=== PATIENT | male | born 1985 | race Caucasian/White ===

== ENCOUNTER 2018-08-25 20:55 | Inpatient (IN) | payer MEDICAID ==
[~2018-08-25] VITALS: Ht 180.3 cm; Wt 104.3 kg
--- NOTE | 2018-08-25 20:55 | NUR ---
2054 - Patient to ER bed 4 to gown for evaluation. Side rails up. Report given to KOMAL Garcia.
[2018-08-25 21:00] VITALS: BP_SYST 112
--- NOTE | 2018-08-25 21:00 | NUR ---
2100 - ER at bedside examining patient.
[2018-08-25 21:22] LABS: BASOPHILS % (AUTO) 0.6 % (0.0-2.0); EOSINOPHILS % (AUTO) 0.6 % (0.0-4.0); HEMATOCRIT 37.7 % (36-54); HEMOGLOBIN 12.6 g/dL (14.0-18.0); LYMPHOCYTES # (AUTO) 0.4 K/uL (1.0-5.5); LYMPHOCYTES % (AUTO) 7.4 % (20.5-51.5); MEAN CORPUSCULAR HEMOGLOBIN 26 pg (27-31); MEAN CORPUSCULAR HGB CONC 33 % (32-36); MEAN CORPUSCULAR VOLUME 78 fL (79.0-98.0); MONOCYTES # (AUTO) 0.1 K/uL (0.0-1.0); MONOCYTES % (AUTO) 2.3 % (1.7-9.3); NEUTROPHILS # (AUTO) 5.1 K/uL (1.8-7.7); NEUTROPHILS % (AUTO) 89.1 % (40.0-70.0); PLATELET COUNT (AUTO) 283 K/uL (130-430); RED BLOOD CELL COUNT(AUTO) 4.83 MIL/uL (4.2-6.2); RED CELL DISTRIBUTION WIDTH 15.4 % (9.0-15.0); WHITE BLOOD COUNT (AUTO) 5.7 K/uL (4.8-10.8)
--- NOTE | 2018-08-25 21:33 | NUR ---
Patient BIB EMS from [place]. Patient had first gone to [place] due to SOB and tachycardia. CT was down, so he was then transferred to [facility]. [facility]'s CT was also down, patient was then brought to [facility]. Patient has a hx of DVT from 6 months ago and is currently taking blood thinners. Patient denies CP, n/v.
[2018-08-25 21:40] LABS: ANION GAP 8 (5-15); CALCIUM 7.8 mg/dL (8.4-11.0); CHLORIDE 102 mmol/L (98-107); CREATININE 0.95 mg/dL (0.55-1.30); GLUCOSE 180 mg/dL (70-99); POTASSIUM 3.1 mmol/L (3.5-5.1); SODIUM SERUM 135 mmol/L (136-145); UREA NITROGEN, BLOOD 17 mg/dL (8-21)
[2018-08-25 21:44] LABS: PROTHROMBIN TIME 9.9 SECS (9.5-12.5)
[2018-08-25 21:45] LABS: GFR AFRICAN AMERICAN 117 mL/min (>90)
[2018-08-25 21:49] LABS: ALANINE AMINOTRANSFERASE 23 U/L (12-78); ALBUMIN 2.8 g/dL (3.4-4.8); ASPARTATE AMINOTRANSFERASE 14 U/L (10-37); TOTAL BILIRUBIN 0.2 mg/dL (0.0-1.0)
[2018-08-25] MEDS ORDERED: IOHEXOL 350 mgI/mL, 150 ML INFUS..BTL IV ONE (22:06)
--- NOTE | 2018-08-25 22:06 | NUR ---
Patient transported to radiology via [place], accompanied by maira Desai.
--- NOTE | 2018-08-25 22:26 | NUR ---
Patient back to bed 4 from radiology. Patient in stable condition.
[2018-08-25] MEDS ORDERED: CALCIUM CHLORIDE 1 GM in NS 100 ML IV ONE (23:30)
[2018-08-25] MEDS ORDERED: PRED10TA PO (23:34)
[2018-08-25] MEDS ORDERED: IBUP-1969 PO (23:34)
[2018-08-25] MEDS ORDERED: LOVI120 SQ (23:34)
[2018-08-25] MEDS ORDERED: HYDR200T80 PO (23:34)
[2018-08-25] MEDS ORDERED: MYCO500T PO (23:34)
[2018-08-25] MEDS ORDERED: OMEP-268 PO (23:34)
[2018-08-25] MEDS ORDERED: ACETAMINOPHEN 325 MG TABLET PO PRN (23:45)
--- NOTE | 2018-08-25 23:54 | NUR ---
Patient will be admitted to care of Dr. Quiles. Admitted to telemetry unit. Will go to room 101B. Belongings list completed. Summary report printed. Report will be given at bedside.
[2018-08-26] MEDS ORDERED: CALCIUM CHLORIDE 1 GM/10ML VIAL (13.6 mEq Ca++/VIAL) ONE (00:03)
--- NOTE | 2018-08-26 00:21 | NUR ---
ADMISSION NOTE Received patient from ER via [facility], received report from KOMAL GAGNON. Patient admitted with diagnosis of DVT. Patient oriented to hospital routine, call light, toileting and safety-patient verbalized understanding.
[2018-08-26 00:23] VITALS: BP_SYST 114
--- NOTE | 2018-08-26 00:40 | NUR ---
NOTES Received patient from ER. Admitting nurse, KOMAL Shepherd was with patient. He is awake, AOx4 and in no distress. Completed assessment.
--- NOTE | 2018-08-26 01:05 | NUR ---
CONSULTATION PAGED REASON FOR CONSULTATION: Chest Pain WAS CONSULT CALLED? Y PERSON WHO WAS NOTIFIED: Marie CONSULTING PHYSICIAN: Jozef Jones [employer] PHONE NUMBER: [phone] REQUESTING PHYSICIAN: Dr. Quiles
--- NOTE | 2018-08-26 02:10 | NUR ---
NOTES Patient is resting with eyes closed and momentarily awakened to clarify medication for pharmacy. Presently he is is no distress and denies pain. Will monitor.
[2018-08-26 04:40] VITALS: BP_SYST 120
--- NOTE | 2018-08-26 04:45 | NUR ---
NOTES Patient resting, no sign of distress. VSS; with oxygen saturation at 99% on room air. Pictures of right leg redness taken. Lab is in for blood draw. Call light w/in reach.
--- NOTE | 2018-08-26 06:45 | NUR ---
NOTES Patient resting in comfortable position, no sign of distress noted. SL IV to RAC. Needs met throughout shift, will endorse care to day shift nurse.
[2018-08-26] MEDS ORDERED: OMEPRAZOLE 20 MG CAPSULE.DR (PriLOSEC) PO SCH (07:00)
[2018-08-26 07:05] LABS: CALCIUM 8.9 mg/dL (8.4-11.0); CREATININE 0.88 mg/dL (0.55-1.30); POTASSIUM 4.1 mmol/L (3.5-5.1)
--- NOTE | 2018-08-26 07:15 | NUR ---
RN OPENING NOTE RECEIVED SBAR REPORT FROM ENDORSING NURSE AT BEDSIDE. SEE VS FLOW SHEET
[2018-08-26 08:00] VITALS: BP_SYST 124
--- NOTE | 2018-08-26 08:31 | NUR ---
DR. COKER (CARDIO) AT BEDSIDE
[2018-08-26] MEDS ORDERED: MYCOPHENOLATE MOFETIL 250 MG CAPSULE PO SCH (09:00)
[2018-08-26] MEDS ORDERED: HYDROXYCHLOROQUINE SULFATE 200 MG TABLET PO SCH (09:00)
[2018-08-26] MEDS ORDERED: IBUPROFEN 600 MG TABLET PO SCH ×2 (09:00)
[2018-08-26] MEDS ORDERED: PREDNISONE 10 MG TABLET PO SCH (09:00)
[2018-08-26 12:00] VITALS: BP_SYST 130
[2018-08-26 16:00] VITALS: BP_SYST 128
[2018-08-26 17:04] VITALS: BP_SYST 120
--- NOTE | 2018-08-26 17:22 | NUR ---
ok to d/c home Dr. Quiles cleared PT to D/C home if third troponin came back negative and he receives cardiac clearance all 3 troponin negative, D/C approved by Dr. Warren.
--- NOTE | 2018-08-26 18:06 | NUR ---
D/C Patient Patient given medication reconciliation form and D/C instructions. Exit Care provided. Patient verbalized understanding. MD discussed with patient the results and treatment provided. Ambulatory with steady gait for discharge to home. Patient in stable condition, ID band removed. IV catheter removed, intact and dressing applied, no active bleeding. Patient educated on pain management and follow-up plan. All belongings sent with patient.
[2018-08-26] MEDS ORDERED: ENOXAPARIN 150 MG/ML SUBCUT SCH (21:00)
== END 2018-08-26 18:06 | disposition home or self-care (01) | DRG 145 ==
LOC: SED 20:55 → SMU 23:39 → STU 23:53
PROVIDERS: ADMIT Internal Medicine; ATTEND Internal Medicine
DX: R07.81 Pleurodynia (principal); M32.9 Systemic lupus erythematosus, unspecified; E87.6 Hypokalemia; R73.9 Hyperglycemia, unspecified; Z79.01 Long term (current) use of anticoagulants; Z82.49 Family history of ischemic heart disease and other diseases of the circulatory system; Z86.718 Personal history of other venous thrombosis and embolism; Z87.891 Personal history of nicotine dependence
CPT/HCPCS: 36415; 71045; 71275; 80048; 80053; 80061; 82550-TC; 83874; 83880; 84484; 85025; 85379; 85610-TC; 93005; 93306; 96365; 99285; G0378; J7512; J7517; Q9967